=== PATIENT | male | born 1995 ===

== ENCOUNTER 2024-04-26 11:51 | Outpatient (CLI) | payer OTHER, SELFPAY ==
--- NOTE | 2024-04-26 11:15 | DI.RAD_ITS ---
Exam(s) XR HAND LT LIMITED EXAM: XR HAND LT LIMITED CLINICAL HISTORY: left hand mass. TECHNIQUE: 2D digital imaging was performed of the left hand. Two views were obtained. PA and late ral views were obtained. COMPARISON: No exams were available for comparison FINDINGS: BONES: No acute fracture is present. No bony destructive lesion is seen. JOINTS: No dislocation present. SOFT TISSUE: No soft tissue calcifications are appreciated. IMPRESSION: Unremarkable radiographs of the left hand. If there is concern for soft tissue mass, ultrasound or MR I should be considered for further evaluation. DATA REPOSITORY: RADIATION DOSE DELIVERED:
== END 2024-04-26 11:52 | disposition home or self-care (01) ==
LOC: DIORS 11:51
PROVIDERS: Visit Provider Physician Assistant
DX: R22.32 Localized swelling, mass and lump, left upper limb (principal)
CPT/HCPCS: 73120

== ENCOUNTER 2024-07-09 12:04 | Day surgery (SDC) | payer OTHER, SELFPAY ==
--- NOTE | 2024-07-09 09:57 | PDOC.DSDIS_ITS ---
Date of service: 07/09/24 Discharge Plan Disposition Patient Disposition: Home Condition: Good Discharge Details Reason For Visit: Left hand mass Attending Provider: Cristóbal Tinajero Primary Care Provider: None,None Home Meds and New Rx's Prescriptions: New hydrocodone-acetaminophen 5-325 mg tablet 1 tab PO Q6H PRN (Reason: severe pain) Qty: 4 0RF Rx Instructions: Take one tablet up to every 6 hours as needed for severe postoperative pain acetaminophen 500 mg tablet 500 mg PO Q6H PRN (Reason: pain) Qty: 60 2RF ibuprofen 600 mg tablet 600 mg PO TID PRN (Reason: pain) Qty: 60 0RF Continued hydroxyzine HCl 25 mg tablet 25 mg PO BID PRN melatonin 3 mg capsule 9 mg PO DAILY PRN Discharge Instructions Additional Instructions: Mass Excision Discharge Instructions Activity: You may use your fingers for light activity. You should limit any excessive motion or forceful gripping until the sutures have been removed. Dressings: You should keep the initial surgical dressing in place for at least 3 days. You may remove your dressings and get the wound wet after 3 days. You should keep the dressings and the wound clean at all times. You may keep the initial dressing in place until your follow-up but keep the wound covered with light gauze. Medications: - You should take Tylenol and Ibuprofen around the clock as prescribed or per honing machine try out setter's recommendations. - You have Hydrocodone prescribed for breakthrough pain control. Take only as needed and limit use as much as possible. This may cause constipation. Follow-up: 7-10 days for wound check. Referrals: Cristóbal Tinajero MD [ [facility] STAFF PHYSICIAN] - Activity:: Elevate Remove Dressings/Wound Care:: 48 hours Shower/Bathe:: 48 hours Diet:: As Tolerated Discharge Orders Discharge Orders: Discharge Order (Routine); Ordered 07/09/24 Ordered By: Zoila Freeman
[2024-07-09 12:05] VITALS: BP 130/93; PULSE 67; RESP 18; TEMP 36.7; O2SAT 99
--- NOTE | 2024-07-09 14:08 | SKI_PTH ---
PATIENT: Siddhartha Kearns LOC: [facility] U#:[id number] AGE/SX: 28/M ROOM: RE07/09/[address]: Cristóbal Tinajero MD : 1995 BED: DIS: 07/09/2024 SPEC #: [id number] RECD: 07/09/24 16:50 STATUS: CLARK REQ #: [id number] MISHA: 07/09/24 14:[address]: Cristóbal Tinajero DEPT: Surgical Specimen RECD BY: Monisha Newton ENTERED: 07/09/24 16:52 SP TYPE: WILFRIDO RAMIREZ DR: None Tissues: 1 - SKIN BIOPSY(SHAVE/PUNCH) Procedures: IMMUNOPEROXIDASE STAIN SKIN BIOPSY LEVEL 3 Comments: [id number]
[2024-07-09 14:21] VITALS: BP 140/91; PULSE 71; RESP 16; TEMP 36.2; O2SAT 99
--- NOTE | 2024-07-09 15:03 | W.PM.OP ---
Operative Note Operative Note PRE-OP DIAGNOSIS: Left Palmar Hand Mass POST-OP DIAGNOSIS: same PROCEDURE: Excision of left palmar hand mass, 1 cm SURGEON: Cristóbal Tinajero ANESTHESIA TYPE: Local By Surgeon Refer to Anesthesia Record ESTIMATED BLOOD LOSS: 0 PATHOLOGY: none sent (Rounded 8 to 10 mm mass from the palmar surface of the left hand) COMPLICATIONS: None Indications: Siddhartha is a 28-year-old male who had a mass about the palmar aspect of the left hand. This is interfering with daily activities and causing pain. Therefore, I offered to have it excised. I reviewed the risk of the procedure to include bleeding, infection, pain, stiffness, recurrence, need for repeat procedures. Despite these risk, he elected to proceed. Findings: There was a rounded superficial mass about the left palm loosely attached to deeper connective tissues. This was removed in whole and sent to pathology. Procedure Description: Siddhartha was greeted in the preoperative holding area. His identity was confirmed the correct size identified and marked. The consent was reviewed with the patient and signed. He was then taken back to the procedure room. The left hand was prepped ChloraPrep and draped in standard fashion. No prophylactic antibiotics are necessary given the clean, elective nature of the surgery. A timeout was performed for safe surgery. The proposed surgical site was anesthetized with 1% lidocaine, with epinephrine, buffered with sodium bicarbonate. Once this anesthetic had set up a 1 cm longitudinal incision was made overlying the mass about the left palm. This was taken down through the skin only. There is a glossy membrane encountered with the mass below it. This was entered gently which expose the mass. The mass still has some attachment to some deep or superficial fibers. With a tenotomy scissor and I elevated off adhesions from this. I was able to move most of the mass outside the skin except for some adhesions distally to some fascial bands which was transected. This appeared to be about a 1 cm smooth, rounded mass. He did not have the typical look of an epidermoid cyst and therefore I did send the pathology. The wound was thoroughly irrigated. The skin was closed with a subcuticular 4-0 Monocryl. This was reinforced with skin glue. The wound was dressed with 4 x 4 gauze and conform dressing. Date of Procedure: 07/09/24
== END 2024-07-09 14:29 | disposition home or self-care (01) ==
LOC: SUR 12:04
PROVIDERS: Visit Provider Student in an Organized Health Care Education/Training Program
PROC: (CPT 26160; principal; 2024-07-09 15:15)
DX: R22.32 Localized swelling, mass and lump, left upper limb (principal); D48.115 Desmoid tumor of upper extremity and shoulder girdle
CPT/HCPCS: 11421; 88304; 88305; 88361; J2004